=== PATIENT | male | born 1965 | race African-American/Black ===

== ENCOUNTER 2016-10-23 19:05 | Emergency (ER) | payer OTHER ==
[~2016-10-23] VITALS: Ht 185.4 cm; Wt 87.6 kg
[~2016-10-23 19:05] MED LIST: BACTRIM,SEPT1 TABLET PO; CIPRO500 MG PO; FLOMAX0.4 MG PO; KEFLEX500 MG PO; MOTRIN800 MG PO; NEURONTIN300 MG PO; PERCOCET 5/31 TABLET PO; ULTRAM50 MG PO; UROXATRAL10 MG PO; VALTREX1000 MG PO; VICODIN 5-3001 EACH PO
[2016-10-23] MEDS ORDERED: TAMIFLU75 MG PO (22:22)
[2016-10-23 23:06] VITALS: BP 125/90
== END 2016-10-23 23:08 | disposition home or self-care (01) ==
LOC: EME 19:05
DX: J11.1 Influenza due to unidentified influenza virus with other respiratory manifestations (principal); Z21 Asymptomatic human immunodeficiency virus [HIV] infection status
CPT/HCPCS: 99281; 99284